=== PATIENT | female | born 1985 | race Hispanic/Latino ===

== ENCOUNTER 2019-11-20 09:34 | Emergency (ER) | payer SELFPAY ==
--- NOTE | 2019-11-20 10:43 | EDPHYS ---
Physician Documentation [facility] Name: Gloria Desir Age: 34 yrs Sex: Female : 1985 Arrival Date: 11/20/2019 Time: 09:39 Bed 12 Private MD: ED Physician Moses Holm HPI: 11/20 10:18 This 34 yrs old Female presents to ER via Ambulatory with complaints of Flu jmm Symptoms. 10:18 The patient or guardian reports cough. Onset: The symptoms/episode began/occurred jmm gradually, 3 day(s) ago. Modifying factors: The symptoms are alleviated by nothing. the symptoms are aggravated by nothing. Associated signs and symptoms: Pertinent positives: diarrhea, sore throat. This is a 34 year old female with no chronic medical conditions that presents ot the ED with complaints of cough, congestion, sore throat, fever, diarrhea beginning 3 days ago. patient states the diarrhea has now resolved. . Historical: - Allergies: 09:43 No Known Allergies; aa5 - Home Meds: 09:43 None [Active]; aa5 - PMHx: 09:43 None; aa5 - PSHx: 09:43 ; aa5 - Immunization history:: Flu vaccine is not up to date. - Social history:: Smoking status: Patient denies any tobacco usage or history of. ROS: 10:18 Constitutional: Positive for body aches, fever. jmm 10:18 ENT: Positive for sinus congestion, sore throat. 10:18 Respiratory: Positive for cough. 10:18 Abdomen/GI: Positive for diarrhea. 10:18 All other systems are negative. Exam: 10:18 Constitutional: This is a well developed, well nourished patient who is awake, alert, jmm and in no acute distress. Head/Face: atraumatic. Eyes: EOMI, no conjunctival erythema appreciated ENT: Moist Mucus Membranes Neck: Trachea midline, Supple Chest/axilla: Normal chest wall appearance and motion. Cardiovascular: Regular rate and rhythm. No edema appreciated Respiratory: Normal respirations, no respiratory distress appreciated Abdomen/GI: Non distended, soft Back: Normal ROM Skin: General appearance color normal MS/ Extremity: Moves all extremities, no obvious deformities appreciated, no edema noted to the lower extremities Neuro: Awake and alert, normal gait Psych: Behavior is normal, Mood is normal, Patient is cooperative and pleasant 10:18 Cardiovascular: Rate: normal, Rhythm: regular, Pulses: no pulse deficits are appreciated. 10:18 Respiratory: the patient does not display signs of respiratory distress, Respirations: normal, Breath sounds: are clear throughout. Vital Signs: 09:42 BP 117 / 77; Pulse 85; Resp 18 S; Temp 98.5(O); Pulse Ox 98% on R/A; Weight 79.38 kg aa5 (R); Height 5 ft. 2 in. (157.48 cm) (R); Pain 05/02; 09:42 Body Mass Index 32.01 (79.38 kg, 157.48 cm) aa5 MDM: 09:45 Patient medically screened. kenia 10:41 Data reviewed: vital signs, nurses notes. Counseling: I had a detailed discussion with shyanne the patient and/or guardian regarding: the historical points, exam findings, and any diagnostic results supporting the discharge/admit diagnosis, lab results, the need for outpatient follow up, to return to the emergency department if symptoms worsen or persist or if there are any questions or concerns that arise at home. ED course: Patient is alert and non toxic in appearance in the ED. No signs of resp distress. Most likely viral illness. Mother advised to increase fluid intake and follow up with pcp. Patient was otherwise given strict return precautions. Patient understood and agrees with the plan of care. . 11/20 09:57 Order name: Flu; Complete Time: 10:41 [facility] 11/20 09:57 Order name: Strep; Complete Time: 10:35 [facility] 11/20 10:32 Order name: Throat Culture EDMS Administered Medications: No medications were administered Disposition: 12:33 Co-signature as Attending Physician, Moses Holm MD I agree with the assessment and [facility] plan of care. Disposition: 11/20/19 10:42 Discharged to Home. Impression: Acute upper respiratory infection, unspecified. - Condition is Stable. - Discharge Instructions: Upper Respiratory Infection, Adult. - Prescriptions for Bromfed DM 2- 30-10 mg/5 mL Oral syrup - take 10 milliliter by ORAL route every 4 hours; 1 bottle. - Medication Reconciliation Form, Thank You Letter, Antibiotic Education, Prescription Opioid Use, Work release form form. - Follow up: Private Physician; When: 2 - 3 days; Reason: Recheck today's complaints, Continuance of care, Re-evaluation by your physician. Signatures: Dispatcher [employer] Moses Cooley MD MD cha Mickail, Joel, PA PA jmm Calderon, Audri, RN RN aa5 Corrections: (The following items were deleted from the chart) 10:56 10:42 11/20/2019 10:42 Discharged to Home. Impression: Acute upper respiratory aa5 infection, unspecified. Condition is Stable. Forms are Medication Reconciliation Form, Thank You Letter, Antibiotic Education, Prescription Opioid Use. Follow up: Private Physician; When: 2 - 3 days; Reason: Recheck today's complaints, Continuance of care, Re-evaluation by your physician. shyanne
--- NOTE | 2019-11-20 10:43 | ER ---
Nurse's Notes [facility] Name: Gloria Desir Age: 34 yrs Sex: Female : 1985 Arrival Date: 11/20/2019 Time: 09:39 Bed 12 Private MD: Diagnosis: Acute upper respiratory infection, unspecified Presentation: 11/20 09:42 Chief complaint: Patient states: cough and body aches that began Saturday night. Pt aa5 reports diarrhea the first 2 days but has now resolved. Pt denies vomiting. Pt states "my daughter just got over flu B". Coronavirus screen: The patient has NOT traveled to [place] in the past 14 days. The patient has NOT had contact with known and/or suspected case of Coronavirus. Ebola Screen: Patient negative for fever greater than or equal to 101.5 degrees Fahrenheit, and additional compatible Ebola Virus Disease symptoms. Initial Sepsis Screen: Does the patient meet any 2 criteria? No. Patient's initial sepsis screen is negative. Does the patient have a suspected source of infection? No. Patient's initial sepsis screen is negative. Risk Assessment: Do you want to hurt yourself or someone else? Patient reports no desire to harm self or others. 09:42 Method Of Arrival: Ambulatory aa5 09:42 Acuity: CHECO 4 aa5 Historical: - Allergies: 09:43 No Known Allergies; aa5 - Home Meds: 09:43 None [Active]; aa5 - PMHx: 09:43 None; aa5 - PSHx: 09:43 ; aa5 - Immunization history:: Flu vaccine is not up to date. - Social history:: Smoking status: Patient denies any tobacco usage or history of. Screenin:45 Abuse screen: Denies threats or abuse. Nutritional screening: No deficits noted. aa5 Tuberculosis screening: No symptoms or risk factors identified. Fall Risk None identified. Assessment: 09:45 General: Appears comfortable, Behavior is calm, cooperative. Pain: Complains of pain in aa5 whole body Pain does not radiate. Pain currently is 8 out of 10 on a pain scale. Quality of pain is described as aching, Pain began 2-3 days ago. Is continuous. Neuro: Level of Consciousness is awake, alert, obeys commands, Oriented to person, place, time, situation. Cardiovascular: Heart tones S1 S2 present Rhythm is regular. Respiratory: Reports cough Airway is patent Respiratory effort is even, unlabored, Respiratory pattern is regular, symmetrical, Breath sounds are clear bilaterally. GI: Abdomen is round non-distended, Bowel sounds present X 4 quads. Abd is soft and non tender X 4 quads. Patient currently denies diarrhea, nausea, vomiting. : No signs and/or symptoms were reported regarding the genitourinary system. EENT: No signs and/or symptoms were reported regarding the EENT system. Derm: Skin is pink, warm \\T\\ dry. Musculoskeletal: Range of motion: intact in all extremities. 10:54 Reassessment: Patient is alert, oriented x 3, equal unlabored respirations, skin aa5 warm/dry/pink. Vital Signs: 09:42 BP 117 / 77; Pulse 85; Resp 18 S; Temp 98.5(O); Pulse Ox 98% on R/A; Weight 79.38 kg aa5 (R); Height 5 ft. 2 in. (157.48 cm) (R); Pain 8/10; 09:42 Body Mass Index 32.01 (79.38 kg, 157.48 cm) aa5 ED Course: 09:39 Patient arrived in ED. mr 09:41 Talha Laura PA is PHCP. jm 09:41 Moses Holm MD is Attending Physician. jm 09:42 Arm band placed on. aa5 09:42 Patient has correct armband on for positive identification. aa5 09:43 Triage completed. aa5 09:44 Leticia Sood, DIANDRA is Primary Nurse. aa5 10:50 No provider procedures requiring assistance completed. Patient did not have IV access aa5 during this emergency room visit. Administered Medications: No medications were administered Outcome: 10:42 Discharge ordered by . jm 10:54 Discharged to home ambulatory. aa5 10:54 Condition: stable 10:54 Discharge instructions given to patient, Instructed on discharge instructions, follow up and referral plans. medication usage, Demonstrated understanding of instructions, follow-up care, medications, Prescriptions given X 1. 10:56 Patient left the ED. aa5 Signatures: Talha Laura PA PA jmm Spencer Rachel mr Leticia Sood, RN RN aa5
[2019-11-20 11:02] VITALS: BP 117/77; TEMP 98.5; O2SAT 98
== END 2019-11-20 10:56 | disposition home or self-care (01) ==
LOC: ER 09:34
DX: J06.9 Acute upper respiratory infection, unspecified (principal)
CPT/HCPCS: 87070; 87081; 87804; 99282

== ENCOUNTER 2020-01-10 20:21 | Emergency (ER) | payer SELFPAY ==
--- OUTSIDE RECORDS SUMMARY | 2020-01-10 20:23 | XMS REPORT ---
:1985 Author Organization [facility] t Address [address] [place] [address] Dr. Escalante [address] [place] [id number] Care Team Providers Name Role Phone Unavailable Unavailable Unavailable Problems This patient has no known problems. Allergies, Adverse Reactions, Alerts This patient has no known allergies or adverse reactions. Medications This patient has no known medications.
--- OUTSIDE RECORDS SUMMARY | 2020-01-10 20:23 | XMS REPORT | Summary of Care ---
:1985 Author Organization [facility] Address [address] [place] [address] Care Team Providers Name Role Phone Maximiliano Sargent [facility] Primary Care Provider Reason for Visit Reason Comments Well Woman Exam Encounter Details Date Type Department Care Team Description [facility] exam with routine gynecological exam (Primary Dx); Susie Viera [facility] H/O tubal ligation; [address] Depo-Provera contraceptive status; [place], [place] SADIE A Obesity (BMI 30.0-34.9); [id number] [place] [address] Screen for STD (sexually transmitted dis ease) [phone] Allergies No Known Allergiesdocumented as of this encounter (statuses as of 06/10/2019) Medications Medication Sig Dispensed Refills Start Date End Date Status azithromycin (ZITHROMAX) Pt to take 2 2 tablet 0 05/30/2017 Active 500 mg tablet pills po x 1 dose Hospital, Clinic, or Other Ordered Dose Route Frequency Start Date End Date Status Facility Administered Medication medroxyPROGESTERone 150 mg IM [id number] 06/10/2019 0 Active (DEPO-PROVERA) injection 150 mgIndications: Depo-Provera contraceptive status documented as of this encounter (statuses as of 06/10/2019) Active Problems Problem Noted Date Cervical high risk human papillomavirus (HPV) DNA test positive 04/18/2017 Overview: HPV+ on 03/2017 pap smear, pap smear resu lts are normal, repeat pap smear in 1 year. Chlamydia 04/17/2017 Well woman exam with routine gynecological exam 2016 Encounter for other contraceptive management 7 Depo-Provera contraceptive status 04/16/2017 Obesity (BMI 30.0-34.9) 04/16/2017 Chlamydia trachomatis infection of lower genitourinary sites 10/19/2016 H/O tubal ligation 07/05/2015 documented as of this encounter (statuses as of 06/10/2019) Resolved Problems Problem Noted Date Resolved Date General counselling and advice on contraception 07/05/2015 04/16/2017 Iron deficiency anemia due to chronic blood loss 07/05/2015 04/16/2017 Chlamydia trachomatis infection of lower genitourinary sites 04/15/2014 10/19/2016 Dichorionic diamniotic twin 12/18/2012 contractions 12/18/2012 04/13/2014 History of delivery, currently 12/18/2012 04/13/2014 Overview: History of delivery at 25 and 36 weeks care and examination immediately after delivery 1 10/13/2004 12/18/2012 documented as of this encounter (statuses as of 06/10/2019) Immunizations Name Administration Dates Next Due Td 09/23/2010 documented as of this encounter Social History Tobacco Use Types Packs/Day Years Used Date Never Smoker Smokeless Tobacco: Never Used Alcohol Use Drinks/Week oz/Week Comments No 0 Standard drinks or equivalent 0.0 Sex Assigned at Date Recorded Not on file Job Start Date Occupation Industry Not on file Not on file Not on file Travel History Travel Start Travel End No recent travel history available. documented as of this encounter Last Filed Vital Signs Vital Sign Reading Time Taken Comments Blood Pressure 105/72 06/10/2019 3:20 PM CDT Pulse 83 06/10/2019 3:20 PM CDT Temperature 36.4 C (97.6 F) 06/10/2019 3:20 PM CDT Respiratory Rate 16 06/10/2019 3:20 PM CDT Oxygen Saturation - - Inhaled Oxygen Concentration - - Weight 75.4 kg (166 lb 3 oz) 06/10/2019 3:20 PM CDT Height 157.5 cm (5' 2") 06/10/2019 3:20 PM CDT Body Mass Index 30.4 06/10/2019 3:20 PM CDT documented in this encounter Patient Instructions Patient InstructionsDanuta Infante LVN - 06/10/2019 3:00 PM CDT Clinical Breast Exam Many health organizations recommend a yearly clinical breast exam. This exam may be done by a lathe operator contact lens, family healthcare provider, nurse practitioner, nurse attendant self service store, or specially trained nurse. Yearly breast exams help tomake surethat breast conditions are found early. Your healthcare providers role A healthcare professional knows the tests and follow-up care needed if a problem is found. Your clinical exam is also a great time to ask questions about breast self-exams. You can find out if yourechecking your breasts in the best way. Or you may want to ask how , breast implants, or breast reduction surgery affect the way you should check your breasts. Diagnostic tests If a clinical exam reveals a breast change, you may have other tests to find out more. These tests may include: Mammography. A low-dose X-ray of your breast tissue. Ultrasound. An imaging test that uses sound waves to create images of your breast. Biopsy. A small amount of breast tissue is removed by needle or by a cut (incision). The tissue is then checked under a microscope. Guidelines for having clinical breast exams The [place] [employer] recommends that starting at age 29, you should have a clinical breast exam every 1 to 3 years. After age 40, have a clinical breast exam each year. If youre at higher risk for breast cancer, you may need exams more often. Risk factors for breast cancer may include: Being over 50 or postmenopausal Having a family history of breast cancer Having the BRCA1 or BRCA2 gene mutation or certain other gene mutations Having more menstrual periods due to starting menstruation early(before age 12) or having a late menopause (after age 55) Having no pregnancies Having a first after age 30 Being obese Having a history of radiation treatment to your chest area Exposure to VADIM during your mother's Not being active Drinking too much alcohol Having dense breast tissue Taking hormone therapy after menopause Other health organizations have different recommendations. Talk with your healthcare provider about what is best for you. Date Last Reviewed: 04/23/201719998841-6554 [employer]. [address] [place] [address], [place] [address]. All rights reserved. This information is not intended as a substitute for professional medical care. Always follow your healthcare professional's instructions. Breast Health: Breast Self-Awareness What is breast self-awareness? Breast self-awareness is knowing how your breasts normally look and feel. Your breasts change as yougo through different stages of your life. So its important to learn what is normal for your breasts. Breast self-awareness helps you notice any changes in your breasts right away. Report any changesto your healthcare provider. Why is breast self-awareness important? Many experts now say that women should focus on breast self-awareness instead of doing a breast self-examination (BSE). These experts include the [place] [employer], the U.S. Preventive Services Task Force, and the [place] [employer]. Some experts even advise notteaching women to do a BSE. Thats because research hasnt shown a clear benefit to doing BSEs. Breast self-awareness is different than a BSE. Breast self-awareness isnt about following a certain method and schedule. Its about knowing what's normal for your breasts. That way you can notice even small changes right away. If you see any changes, report them to your healthcare provider. Changes to look for Call your healthcare provider if you find any changes in your breasts that concern you. These changes may include: A lump Nipple discharge other than breastmilk, especially a bloody discharge Swelling A change in size or shape Skin irritation, such as redness, thickening, or dimpling of the skin Swollen lymph nodes in the armpit Nipple problems, such as pain or redness If you find a lump Contact your provider if you find lumpiness in one breast, feel something different in the tissue, or feel a definite lump. Sometimes lumpiness may be due to menstrual changes. But there may be reason for concern. Your provider may want to see you right away if you have: Nipple discharge that is bloody Skin changes on your breast, such as dimpling or puckering Its normal to be upset if you find a lump. But its important to contact your provider right away. Remember that most breast lumps are benign. This means they are not cancer. Date Last Reviewed: 04/23/201719992270-1502 [employer]. [address] [place] [address], [place] [address]. All rights reserved. This information is not intended as a substitute for professional medical care. Always follow your healthcare professional's instructions. Prevention Guidelines,Women Ages 18 to 39 Screening tests and vaccines are an important part of managing your health. A screening test is doneto find possible disorders or diseases in people who don't have any symptoms. The goal is to find a disease early so lifestyle changes can be made and you can be watched more closely to reduce the riskof disease, or to detect it early enough to treat it most effectively. Screening tests are not considered diagnostic, but are used to determine if more testing is needed. Health counseling is essential, too. Below are guidelines for these, for women ages 18 to 39. Talk with your healthcare provider tomake sure youre up-to-date on what you need. Screening Who needs it How often Alcohol misuse All women in this age group At routine exams Blood pressure All women in this age group Yearly checkup if your blood pressure is normal Normal blood pressure is less than 120/80 mm Hg If your blood pressure reading is higher than normal, follow the advice of your healthcare provider Breast cancer All women in this age group should talk with their healthcare providers about the needfor clinical breast exams (CBE)1 Clinical breast exam every 3 years1 Cervical cancer Women ages 21 and older Women between ages 21 and 29 should have a Pap test every 3 years; women between ages 30 and 65 are advised to have a Pap test plus an HPV test every 5 years Chlamydia Sexually active women ages 25 and younger, and women at increased risk for infection (suchas having multiple sex partners) Every year if you're at risk or have symptoms Depression All women in this age group At routine exams Type 2 diabetes, prediabetes All women with no symptoms who are overweight or obese and have 1 or more other risk factors for diabetes At least every 3 years. Also, testing for diabetes during after the 24th week. Type 2 diabetes, prediabetes All women diagnosed with gestational diabetes Lifelong testing every 3 years Type 2 diabetes All women with prediabetes Every year Gonorrhea Sexually active women at increased risk for infection At routine exams Hepatitis C Anyone at increased risk At routine exams HIV All women should be tested at least once for HIV between the ages of 13 and 64 At routine exams.Those with risk factors for HIV should be tested at least annually. Obesity All women in this age group At routine exams Syphilis Women at increased risk for infection should talk with their healthcare provider At routineexams Tuberculosis Women at increased risk for infection should talk with their healthcare provider Ask your healthcare provider Vision All women in this age group At least 1 complete exam in your 20s, and 2 in your 30s Vaccine2 Who needs it How often Chickenpox (varicella) All women in this age group who have no record of this infection or vaccine 2doses; the second dose should be given 4 to 8 weeks after the first dose Hepatitis A Women at increased risk for infection should talk with their healthcare provider 2 dosesgiven at least 6 months apart Hepatitis B Women at increased risk for infection should talk with their healthcare provider 3 dosesover 6 months; second dose should be given 1 month after the first dose; the third dose should be given at least 2 months after the second dose and at least 4 months after the first dose Haemophilus influenzaeType B (HIB) Women at increased risk for infection should talk with their healthcare provider 1 to 3 doses Human papillomavirus (HPV) All women in this age group up to age 26 3 doses; the second dose should be given 1 to 2 months after the first dose and the third dose given 6 months after the first dose Influenza (flu) All women in this age group Once a year Measles, mumps, rubella (MMR) All women in this age group who have no record of these infections or vaccines 1 or 2 doses Meningococcal Women at increased risk for infection should talk with their healthcare provider 1 or more doses Pneumococcal conjugate vaccine (PCV13)and pneumococcal polysaccharidevaccine(PPSV23) Women at increased risk for infection should talk with their healthcare provider PCV13: 1 dose ages 19 to 65 (protects against 13 types of pneumococcal bacteria) PPSV23: 1 to2 doses through age 64, or 1 dose at 65 or older (protects against 23 types of pneumococcal bacteria) Tetanus/diphtheria/pertussis (Td/Tdap) booster All women in this age group Td every 10 years, or a one-time dose of Tdap instead of a Td booster after age 18, then Td every 10 years Counseling Who needs it How often BRCA gene mutation testing for breast and ovarian cancer susceptibility Women with increased risk for having gene mutation When your risk is known Breast cancer and chemoprevention Women at high risk for breast cancer When your risk is known Diet and exercise Women who are overweight or obese When diagnosed, and then at routine exams Domestic violence Women at the age in which they are able to have children At routine exams Sexually transmitted infection prevention Women who are sexually active At routine exams Skin cancer Prevention of skin cancer in fair-skinned adults At routine exams Use of tobacco and the health effects it can cause All women in this age group Every visit 1 According to the ACS, women ages 20 to 39 years should have a clinical breast exam (CBE) as part of their routine health exam every 3 years. Breast self-exams are an option for women starting in their 20s.But the USPSTF does not recommend CBE. Date Last Reviewed: 06/23/201719996043-5192 [employer]. [address] [place] [address], [place] [address]. All rights reserved. This information is not intended as a substitute for professional medical care. Always follow your healthcare professional's instructions. Understanding STDs When it comes to sex, nothing is risk-free. Any sexual contact with the penis, vagina, anus, or mouth can spread a sexually transmitted disease (STD). The only sure way to prevent STDs is abstinence (not having sex). But there are ways to make sex safer. Use a latex condom each time you have sex. And choose your partner wisely. Use condoms for safer sex If you have sex, latex condoms provide the best protection against STDs. Latex condoms stop the exchange of body fluids that carry certain STDs. They also limit contact with affected skin. Be aware though, a condom doesnt cover all skin. So, affected skin that is not covered can still transfer disease. But youre safer with a condom than without one. Use a condom even if you use other control. While control methods like the pill or IUD help prevent , they do not protect against STDs. Choose the right condom Condoms made of latex prevent disease best. If youre allergic to latex, use polyurethane condoms instead. Male condoms fit over the penis. Female condoms line the vagina. Before buying a condom, read the label to be sure it prevents disease. Some novelty condoms dont. The right lubricant helps Buy lubricated condoms or use lubricant. This provides greater comfort and reduces the risk of condom breakage. Use only water-based lubricants. Dont use oil, lotion, or petroleum jelly. They can weaken the condom, causing breakage. Also, you may want to choose lubricants without nonoxynol-9. Its now known that this spermicide does not prevent disease and may cause irritation. Use condoms correctly For condoms to work, they must be used the right way. Keep these tips in mind: Use a new latex condom each time you have sex. Slip the condom on the penis before any contact ismade. When ready to withdraw, hold the rim of the condom as the penis pulls out. This prevents the condom from slipping off. Check the expiration date before using a condom. Dont store condoms in places that can get hot, such as a car or a wallet that is carried in a back pocket. Get to know your partner Safer sex is a process. It involves getting to know your partner and making informed choices. Ask each other how many partners you have had in the past, and how many you have now. Find out if either ofyou has an STD. If you decide to have sex, use a condom each time. Dont stop using condoms unlessyoure sure neither of you has other partners and youve both been tested to confirm you donthave STDs. Then stay free of disease by having sex only with each other (monogamy). Keep your cool Dont let alcohol or drugs cloud your judgment. They could lead you to have sex with someone you wouldnt have chosen if you were sober. Or, you might forget to use a condom. If you do plan to havesex, keep a latex condom with you. Dont wait until youre in the heat of passion to try to findone. Consider abstinence The only way to be sure you wont get an STD is to abstain from sex. Abstinence is a choice that many people make at some point in their lives. Maybe you want to wait until you are sure youre ready before you have sex. Maybe youd like a break from the responsibilities of sex for a while. Or maybe you just want to know your partner better before taking the next step. Abstinence is a choice youcan make now to protect your future. Date Last Reviewed: 08/23/201619991846-5300 [employer]. [address] [place] [address], [place] [address]. All rights reserved. This information is not intended as a substitute for professional medical care. Always follow your healthcare professional's instructions. Understanding HIV and AIDS If you know how HIV (human immunodeficiency virus) can get into your body and what happens once its there, youll be better prepared to protect yourself or others against this virus. A person withHIV can look and feel perfectly healthy. But that person can give HIV to others as soon as he or sheis infected with the virus. Note: Having unsafe or unprotected sex or sharing needles put you at risk for HIV. Talk with your healthcare provider about ways to protect yourself or a loved one from getting HIV. How HIV enters the body HIV is carried in semen, vaginal fluid, blood, and breast milk. During sex, HIV can enter the body through the fragile tissue that lines the vagina, penis, anus,and mouth. During drug use, tattooing, or body piercing, the virus can enter the bloodstream through a shared needle. A mother who has HIV can infect her child during childbirth and through . How HIV infection progresses After HIV enters the body, it attacks the immune system in stages. A person with HIV can infect others once the virus enters the bloodstream. HIV with no symptoms. A person with HIV may have no symptoms for years. A positive blood test for HIV antibodies 6 weeks to 6 months after HIV enters the body may be the only sign of infection. HIV with symptoms.Some people develop an illness similar to mononucleosis (or "mono") 2 to 4 weeksafter the virus enters the body. Symptoms may include swollen lymph glands, chills, fever, night sweats, weakness, weight loss, skin rashes, mouth ulcers, or sore throat. Symptoms may be mild at first and then slowly go away. In a very few individuals, symptoms may get progressively worse and last forlonger and longer periods. AIDS. AIDS is the last stage of HIV infection. Diseases and cancers begin to overcome the body. It is these diseases, not the virus itself, that cause . HIV may also attack the brain and nervous system, causing seizures and loss of memory and body movement. Date Last Reviewed: 07/24/201619995749-9024 [employer]. [address] [place] [address], [place] [address]. All rights reserved. This information is not intended as a substitute for professional medical care. Always follow your healthcare professional's instructions. Eating Heart-Healthy Foods Eating has a big impact on your heart health. In fact, eating healthier can improve several of your heart risks at once. For instance, it helps you manage weight, cholesterol, and blood pressure. Here are ideas to help you make heart- healthy changes without giving up allthe foods and flavors you love. Getting started Talk with your healthcare provider about eating plans, such as the DASH or Mediterranean diet. You may also be referred to a dietitian. Change a few things at a time. Give yourself time to get used to a few eating changes before adding more. Work to create a tasty, healthy eating plan that you can stick to for the rest of your life. Goals for healthy eating Below are some tips to improve your eating habits: Limit saturated fats and trans fats. Saturated fats raise your levels of cholesterol, so keep these fats to a minimum. They are found in foods such as fatty meats, whole milk, cheese, and palm and coconut oils. Avoid trans fats because they lower good cholesterol as well as raise bad cholesterol. Trans fats are most often found in processed foods. Reduce sodium (salt) intake. Eating too much salt may increase your blood pressure. Limit your sodium intake to 2,300 milligrams (mg) per day(the amount in 1 teaspoon of salt), or less if your healthcare provider recommends it. Dining out less often and eating fewer processed foods are two great ways to decrease the amount of salt you consume. Managing calories. A calorie is a unit of energy. Your body yung calories for fuel, but if you eat more calories than your body yung, the extras are stored as fat. Your healthcare provider can help you create a diet plan to manage your calories. This will likely include eating healthier foods as well as exercising regularly. To help you track your progress, keep a diary to record what you eat and how often you exercise. Choose the right foods Aim to make these foods oscar of your diet. If you have diabetes, you may have different recommendations than what is listed here: Fruits and vegetables provide plenty of nutrients without a lot of calories. At meals, fill half your plate with these foods. Split the other half of your plate between whole grains and lean protein. Whole grains are high in fiber and rich in vitamins and nutrients. Good choices include whole-wheat bread, pasta, and brown rice. Lean proteins give you nutrition with less fat. Good choices include fish, skinless chicken, and beans. Low-fat or nonfat dairy provides nutrients without a lot of fat. Try low-fat or nonfat milk, cheese, or yogurt. Healthy fats can be good for you in small amounts. These are unsaturated fats, such as olive oil,nuts, and fish. Try to have at least 2 servings per week of fatty fish, such as salmon, sardines, mackerel, rainbow trout, and albacore tuna. These contain omega-3 fatty acids, which are good for your heart. Flaxseed is another source of a heart-healthy fat. More on heart-healthy eating Read food labels Healthy eating starts at the grocery store. Be sure to pay attention to food labels on packaged foods. Look for products that are high in fiber and protein, and low in saturated fat, cholesterol, and sodium. Avoid products that contain trans fat. And pay close attention to serving size. For instance, if you plan to eat two servings, double all the numbers on the label. Prepare food right A leon part of healthy cooking is cutting down on added fat and salt. Look on the internet for lower-fat, lower-sodium recipes. Also, try these tips: Remove fat from meat and skin from poultry before cooking. Skim fat from the surface of soups and sauces. Broil, boil, bake, steam, grill, and microwave food without added fats. Choose ingredients that spice up your food without adding calories, fat, or sodium. Try these items: horseradish, hot sauce, lemon, mustard, nonfat salad dressings, and vinegar. For salt-free herbs and spices, try basil, cilantro, cinnamon, pepper, and linette. Date Last Reviewed: 06/23/201719998811-[address] [employer] [place] [address], [place] [address]. All rights reserved. This information is not intended as a substitute for professional medical care. Always follow your healthcare professional's instructions. Understanding USDA MyPlate The USDA (U.S. Department of Agriculture) has guidelines to help you make healthy food choices. These are called MyPlate. MyPlate shows the food groups that make up healthy meals using the image of a place setting. Before you eat, think about the healthiest choices for what to put onto your plate or into your cup or bowl. To learn more about building a healthy plate, visit www.choosemyplate.gov. The food groups Fruits. Any fruit or 100% fruit juice counts as part of the Fruit Group. Fruits may be fresh, canned, frozen, or dried, and may be whole, cut-up, or pureed. Make half your plate fruits and vegetables. Vegetables. Any vegetable or 100% vegetable juice counts as a member of the Vegetable Group. Vegetables may be fresh, frozen, canned, or dried. They can be served raw or cooked and may be whole, cut-up, or mashed. Make half your plate fruits and vegetables. Grains. All foods made from grains are part of the Grains Group. These include wheat, rice, oats,cornmeal, and barley such as bread, pasta, oatmeal, cereal, tortillas, and grits. Grains should be no more than a quarter of your plate. At least half of your grains should be whole grains. Protein. This group includes meat, poultry, seafood, beans and peas, eggs, processed soy products(like tofu), nuts (including nut butters), and seeds. Make protein choices no more than a quarter ofyour plate. Meat and poultry choices should be lean or low fat. Dairy. All fluid milk products and foods made from milk that contain calcium, like yogurt and cheese, are part of the Dairy Group. (Foods that have little calcium, such as cream, butter, and cream cheese, are not part of the group.) Most dairy choices should be low-fat or fat-free. Oils. These are fats that are liquid at room temperature. They include canola, corn, olive, soybean, and sunflower oil. Foods that are mainly oil include mayonnaise, certain salad dressings, and soft margarines. You should have only 5 to 7 teaspoons of oils a day. You probably already get this muchfrom the food you eat. Date Last Reviewed: 04/23/201719994306-5936 [employer] [place] [address]. All rights reserved. This information is not intended as a substitute for professional medical care. Always follow your healthcare professional's instructions. Medroxyprogesterone injection [Contraceptive] Brand Names: Depo-Provera, Depo-subQ Provera 104 What is this medicine? MEDROXYPROGESTERONE (me DROX ee proe SCOTT te radha) contraceptive injections prevent . They provide effective control for 3 months. Depo-subQ Provera 104 is also used for treating pain related to endometriosis. How should I use this medicine? Depo-Provera Contraceptive injection is given into a muscle. Depo-subQ Provera 104 injection is given under the skin. These injections are given by a health career and guidance counselor. You must not be before getting an injection. The injection is usually given during the first 5 days after the start of a menstrual period or 6 weeks after delivery of a baby. Talk to your program schedule clerk regarding the use of this medicine in children. Special care may be needed. These injections have been used in female children who have started having menstrual periods. What side effects may I notice from receiving this medicine? Side effects that you should report to your doctor or health career and guidance counselor as soon as possible: allergic reactions like skin rash, itching or hives, swelling of the face, lips, or tongue breast tenderness or discharge breathing problems changes in vision depression feeling faint or lightheaded, falls fever pain in the abdomen, chest, groin, or leg problems with balance, talking, walking unusually weak or tired yellowing of the eyes or skin Side effects that usually do not require medical attention (report to your doctor or health career and guidance counselor if they continue or are bothersome): acne fluid retention and swelling headache irregular periods, spotting, or absent periods temporary pain, itching, or skin reaction at site where injected weight gain What may interact with this medicine? Do not take this medicine with any of the following medications: bosentan This medicine may also interact with the following medications: aminoglutethimide antibiotics or medicines for infections, especially rifampin, rifabutin, rifapentine, and griseofulvin aprepitant barbiturate medicines such as phenobarbital or primidone bexarotene carbamazepine medicines for seizures like ethotoin, felbamate, oxcarbazepine, phenytoin, topiramate modafinil Catherine's wort What if I miss a dose? Try not to miss a dose. You must get an injection once every 3 months to maintain control. If you cannot keep an appointment, call and reschedule it. If you wait longer than 13 weeks between Depo-Provera contraceptive injections or longer than 14 weeks between Depo-subQ Provera 104 injections, you could get . Use another method for control if you miss your appointment. You may also need a test before receiving another injection. Where should I keep my medicine? This does not apply. The injection will be given to you by a health career and guidance counselor. What should I tell my health care provider before I take this medicine? They need to know if you have any of these conditions: frequently drink alcohol asthma blood vessel disease or a history of a blood clot in the lungs or legs bone disease such as osteoporosis breast cancer diabetes eating disorder (anorexia nervosa or bulimia) high blood pressure HIV infection or AIDS kidney disease liver disease mental depression migraine seizures (convulsions) stroke tobacco smoker vaginal bleeding an unusual or allergic reaction to medroxyprogesterone, other hormones, medicines, foods, dyes, or preservatives or trying to get breast-feeding What should I watch for while using this medicine? This drug does not protect you against HIV infection (AIDS) or other sexually transmitted diseases. Use of this product may cause you to lose calcium from your bones. Loss of calcium may cause weak bones (osteoporosis). Only use this product for more than 2 years if other forms of control are not right for you. The longer you use this product for control the more likely you will be at risk for weak bones. Ask your health career and guidance counselor how you can keep strong bones. You may have a change in bleeding pattern or irregular periods. Many females stop having periods while taking this drug. If you have received your injections on time, your chance of being is very low. If you think you may be , see your health career and guidance counselor as soon as possible. Tell your health career and guidance counselor if you want to get within the next year. The effect of this medicine may last a long time after you get your last injection. NOTE:This sheet is a summary. It may not cover all possible information. If you have questions aboutthis medicine, talk to your doctor, pharmacist, or health care provider. Copyright 2018 Elsevier documented in this encounter Progress Notes Beatrice Morgan RN - 06/10/2019 3:00 PM CDT34 year old female has been identified by . Verbal consent has been obtained by patient to have an injection of Depo Provera, as ordered by the provider. Date of last Depo Provera injection: 03/20/2019 Last WWE: 06/10/2019 Encounter Diagnosis: v25.49 The site was cleaned with an alcohol swab and given intramuscularly (IM) in the left deltoid. A band aid dressing was then applied to the injection site. The patient tolerated the procedure well . BEATRICE MORGAN RN 06/10/2019 4:08 PM Chana Sargent, SHOSHANA - 06/10/2019 3:00 PM CDT Chief complaint: Chief Complaint Patient presents with Well Woman Exam HPI: the patient is here today for WWE and contraceptive management. She reports she is doing well with no issues or concerns today. She reports she desires STI testing as she reports a new sexual partner within the past year. She reports tubal ligation for control and depo to help regulate her menses. Pt (denies) current or past physical, sexual or emotional abuse. Histories OB History Para Term AB Living 4 4 1 3 0 5 SAB TAB Ectopic Multiple Live Births 0 0 0 1 3 # Outcome Date GA Lbr Nabeel/2nd Weight Sex Delivery Anes PTL Lv 4A 02/20/13 34w0d M CS-LTranv 4B 02/20/13 34w0d F Y 3 Term 08/09/11 39w0d 6 lb 1.2 oz (2.755 kg) F Vag-Spont NONE N JED Comments: Took medication to prevent PTL 2 09/21/07 36w0d 6 lb 7.2 oz (2.925 kg) M Vag-Spont NONE Y JED Comments: PTL 1 08/13/05 24w0d 1 lb 10 oz (0.738 kg) F Vag-Spont NONE Y JED Comments: PTL Past Medical History: Diagnosis Date Abnormal uterine bleeding Anemia not sure of levels at this time Blood transfusion, without reported diagnosis 03/25/2014 History of delivery, currently Menstrual disorder Mental disorder Bipolar Pap smear abnormality of cervix 2018 PID (pelvic inflammatory disease) STD (sexually transmitted disease) CT+ Family History Problem Relation Age of Onset Asthma Sister Diabetes Maternal Aunt Diabetes Maternal Grandfather Heart Maternal Grandfather No Significant Medical Problems Maternal Grandmother Asthma Son Asthma Daughter Arthritis NoFHx defects NoFHx Breast Cancer NoFHx Colon Cancer NoFHx Ovarian Cancer NoFHx Uterine Cancer NoFHx Cancer NoFHx Genetic NoFHx Depression NoFHx High cholesterol NoFHx Hypertension NoFHx Mental retardation NoFHx Neurological NoFHx Osteoporosis NoFHx Psychiatry NoFHx Family Status Relation Name Status Sis Alive MAunt MGFa Mo Alive Fa Alive Bro Alive MUnc Alive PAunt Alive PUnc Alive MGMo Alive PGMo Alive PGFa Son (Not Specified) Amanda (Not Specified) NoFHx (Not Specified) Past Surgical History: Procedure Laterality Date SECTION TUBAL LIGATION Social History Socioeconomic History Marital status: Single Spouse name: Not on file Number of children: 5 Years of education: 12 Highest education level: Not on file Occupational History Occupation: Unemployed Social Needs Financial resource strain: Not on file Food insecurity: Worry: Not on file Inability: Not on file Transportation needs: Medical: Not on file Non-medical: Not on file Tobacco Use Smoking status: Never Smoker Smokeless tobacco: Never Used Substance and Sexual Activity Alcohol use: No Alcohol/week: 0.0 oz Drug use: Yes Sexual activity: Yes Partners: Male control/protection: Injection, Surgical, Condom Comment: last sexual 05/20/2019 Lifestyle Physical activity: Days per week: Not on file Minutes per session: Not on file Stress: Not on file Relationships Social connections: Talks on phone: Not on file Gets together: Not on file Attends tenriism service: Not on file Active member of club or organization: Not on file Attends meetings of clubs or organizations: Not on file Relationship status: Not on file Intimate partner violence: Fear of current or ex partner: Not on file Emotionally abused: Not on file Physically abused: Not on file Forced sexual activity: Not on file Other Topics Concern Not on file Social History Narrative Orthodoxy preference none. Patient lives with children. Social History Substance and Sexual Activity Sexual Activity Yes Partners: Male control/protection: Injection, Surgical, Condom Comment: last sexual 05/20/2019 Labs Labs are pending. Radiology No new radiology. Allergies Gloria has No Known Allergies. Medications Gloria has a current medication list which includes the following prescription(s): azithromycin, and the following Facility-Administered Medications: medroxyprogesterone. Review of Systems Constitutional: Negative. HENT: Negative. Eyes: Negative. Respiratory: Negative. Breasts: Negative. Cardiovascular: Negative. Gastrointestinal: Negative. Genitourinary: Negative. Musculoskeletal: Negative. Skin: Negative. Neurological: Negative. Psychiatric/Behavioral: Negative. Endocrine: Endocrine negative BP 105/72 | Pulse 83 | Temp 36.4 C (97.6 F) | Resp 16 | Ht 5' 2" (1.575 m) | Wt 166 lb 3 oz(75.4 kg) | LMP 06/08/2019 (Approximate) | BMI 30.40 kg/m Pregravid BMI: Could not be calculated Physical Exam Vitals reviewed. Constitutional: She is oriented to person, place, and time. She appears well- developed. Her body habitus is normal. Neck: No tenderness and no mass. No thyroid nodules and no thyromegaly palpated. No neck adenopathy. Cardiovascular: Regular rate and rhythm. No gallop, no friction rub and no murmur auscultated. No peripheral edema present. Pulmonary/Chest: Breath sounds clear to auscultation. Normal inspiratory effort. Abdominal: Abdomen is soft. No mass palpated. No tenderness present. There is no hepatosplenomegaly,splenomegaly or hepatomegaly. There is no rigidity. No hernia palpated or inspected. Neuro/Psychiatric: She has a normal mood and affect. She is oriented to person, place, and time. Skin: No lesion, no rash and no ulceration present. Lymphadenopathy: No neck adenopathy present. No axillary adenopathy present. No inguinal adenopathy present. Genitourinary Comments: Anahi CARRANZA present during exam Breast: Right breast exhibits no mass, no nipple discharge and no tenderness. Left breast exhibits no mass, no nipple discharge and no tenderness. Breasts are symmetrical. Normal left breast and normalright breast Rectal: Rectal exam with normal anal tone. No mass, no external hemorrhoid and no internal hemorrhoid palpated or inspected. External genitalia: Normal external genitalia appropriate for age. Normal hair distribution. No labial lesion. Urethral meatus: Normal urethral meatus size, location and no lesion. No prolapse present. Normal urethral meatus Urethra: Normal urethra. No urethral tenderness, no mass and no urethral scarring palpated. Bladder: Bladder has no fullness, no mass palpated and no tenderness. Normal bladder Vagina:Normal vagina. No lesion inspected. Normal estrogen effect. Normal support. No abnormal vaginal discharge found. Cervix: Normal cervix. No lesion. No tenderness and no discharge present. Uterus: Uterus is normal size, normal contour, normal position and non-tender. Normal uterus Adnexa: Right adnexa without tenderness, ovary enlargement or mass. Left adnexa without tenderness, ovary enlargement or mass. Normal left adnexa and normal right adnexa Anus/perineum: Normal perineum and normal anus. Assessment/Plan Return to clinic in 12 weeks. 08/2019 for depo Return in 1 year for WWE or sooner as needed Rubella/VZV: immune/pendign BMI 30 Td: 2010 Pap Smear: today Gardasil:na Mammogram:na Guaiac:na Colonoscopy:na Well woman exam with routine gynecological exam (primary encounter diagnosis) Comment:routine Plan: PAP Smear-Liquid Based, HIGH RISK HPV-THIN PREP H/O tubal ligation Depo-Provera contraceptive status Comment: as ordered Plan: medroxyPROGESTERone (DEPO-PROVERA) injection 150 mg Obesity (BMI 30.0-34.9) Comment: see bmi Plan: limit weight gain and sensible diet. Screen for STD (sexually transmitted disease) Comment: as ordered Plan: GC & CHLAMYDIA AMPLIFIED ASSAY, HIV 1/2 AG-AB WITH REFLEX This visit did not involve counseling and coordination that comprised more than 50% of the visit time. IRLANDA Metzger 06/10/2019 4:01 PM Danuta Infante LVN - 06/10/2019 3:00 PM CDT34 year old presented to the clinic for WWE. 1) Previous BCM:BTL, Depo 2) Desired BCM:BTL, Depo 3) LMP:06/08/2019 4) Last Benton:05/20/2019 5) Last Pap:04/16/2018 Results:abnormal 6) Tdap in last 10 years?09/23/2010 HPV? no 7) C/O none 8) Patient denies history of physical, emotional, or sexual abuse. Patient states she currently feels safe at home. documented in this encounter Plan of Treatment Date Type Specialty Care Team Description 09/04/2019 Nurse [facility] Name Type Priority Associated Diagnoses Date/Ti me PAP Smear-Liquid Based LAB Routine Well woman exam wi th 06/10/2019 3:58 PM routine gynecological exam C DT HIGH RISK HPV-THIN PREP LAB Routine Well woman exam w ith 06/10/2019 3:58 PM routine gynecological exam C DT GC & CHLAMYDIA LAB Routine Screen for STD (sexually 0 06/10/2019 4:01 PM AMPLIFIED ASSAY transmitted disease) CDT HIV 1/2 AG-AB WITH LAB Routine Screen for STD (sexual ly 06/10/2019 4:01 PM REFLEX transmitted disease) CDT Health Maintenance Due Date Last Done Comments VARICELLA VACCINES (1 of 2 1999 - 13+ 2-dose series) DTaP,Tdap,and Td Vaccines 09/24/2010 09/23/2010 (1 - Tdap) INFLUENZA VACCINE (#1) 2019 PAP SMEAR 04/16/2021 04/16/2018, 04/16/2017, 04/13/2014, Additional history exists PNEUMOCOCCAL 0-64 YEARS Aged Out No longe r eligible COMBINED SERIES based on patient 's age to complete this topic documented as of this encounter Results Not on filedocumented in this encounter Visit Diagnoses Diagnosis Well woman exam with routine gynecologic al exam - Primary Routine gynecological examination H/O tubal ligation Tubal ligation status Depo-Provera contraceptive status Surveillance of other previously prescri bed contraceptive method Obesity (BMI 30.0-34.9) Obesity, unspecified Screen for STD (sexually transmitted dis ease) Screening examination for venereal disea se documented in this encounter Administered Medications Medication Order MAR Action Action Date Dose Rate Site medroxyPROGESTERone Given 06/10/2019 4:10 150 mg Left Deltoid-IM (DEPO-PROVERA) injection 150 PM CDT mg 150 mg, Intramuscular, [id number], 4 doses, First dose on Sat06/10/19 at 1600, Last dose on Sat02/17/20 at 1600, Routine documented in this encounter Insurance Payer Benefit Plan Subscriber ID Effective Phone Address Typ e / Group Dates [facility] xxxxxxxxx 2016-Pres [phone] Medicaid WOMEN ent [id number] [place] [address] documented as of this encounter Advance Directives Name Relationship Healthcare Agent Communication Relationship Che Cummins Mother Primary healthcare agent Lizeth Desir Sibling [facility] healthcare [phone] agent (Mobile)
--- OUTSIDE RECORDS SUMMARY | 2020-01-10 20:24 | XMS REPORT | Summary of Care ---
:1985 Author Organization [facility] Address [address] [place] [address] Care Team Providers Name Role Phone Maximiliano Sargent [facility] Primary Care Provider Reason for Visit Reason Comments NURSE VISIT LAB WORK Encounter Details Date Type Department Care Team Description 10/30/2019 Nurse Visit [facility]- Alec Sargent, [facility] [address] [place] [address] Screening examination for STD (sexually transmitted disease) (Primary Dx); [place] Visit, [facility] Nurse Chlamydia trachomatis infection of lower genitourinary sites [address] [place] [address] Allergies No Known Allergiesdocumented as of this encounter (statuses as of 10/30/2019) Medications Medication Sig Dispensed Refills Start Date End Date Status azithromycin (ZITHROMAX) Pt to take 2 2 tablet 0 05/30/2017 Active 500 mg tablet pills po x 1 dose Hospital, Clinic, or Other Ordered Dose Route Frequency Start Date End Date Status Facility Administered Medication medroxyPROGESTERone 150 mg IM [id number] 06/10/2019 0 Active (DEPO-PROVERA) injection 150 mgIndications: Depo-Provera contraceptive status documented as of this encounter (statuses as of 10/30/2019) Active Problems Problem Noted Date Cervical high [...] as of this encounter (statuses as of 10/30/2019) Resolved Problems Problem Noted Date Resolved Date [...] as of this encounter (statuses as of 10/30/2019) Immunizations Name Administration Dates Next Due Td [...] of this encounter Last Filed Vital Signs Not on filedocumented in this encounter Plan of Treatment Date Type Specialty Care Team Description 11/27/2019 Nurse Visit [facility]ell[facility] Visit, [facility] Nurse Name Type Priority Associated Diagnoses Date/Ti me GC & CHLAMYDIA LAB Routine Chlamydia trachomatis 03/2020 1:53 PM AMPLIFIED ASSAY 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 Name Type Priority Associated Diagnoses Order S chedule HIV 1/2 AG-AB WITH LAB Routine Screening examination for Expected: 10/30/2019, REFLEX STD (sexually transmitted Ex carolin: 10/30/2020 disease) Health Maintenance Due Date Last Done Comments DTaP,Tdap,and Td Vaccines 09/04/2020 09/23/2010 Postpo [place] from (1 - Tdap[place] INFLUENZA VACCINE (#1) 2020 Postponed from 05/24/2019 (Refu sed) VARICELLA VACCINES (1 of 2 09/04/2020 Postp oned from - 2-dose childhood series) 04/01 (Insurance / Financial) PAP SMEAR 06/10/2022 06/10/2019, 04/16/2018, 04/16/2017, Additional history exists PNEUMOCOCCAL 0-64 YEARS Aged Out No longe r eligible COMBINED SERIES based on patient 's age to complete this topic documented as of this encounter Results Not on filedocumented in this encounter Visit Diagnoses Diagnosis Screening examination for STD (sexually transmitted disease) - Primary Screening examination for venereal disea se Chlamydia trachomatis infection of lower genitourinary sites documented in this encounter Insurance Payer Benefit Plan Subscriber ID Effective Phone Address Typ e / Group Dates [facility] xxxxxxxxx 2016-Pres [phone] Medicaid WOMEN ent [id number] [place] [address] documented as of this encounter Advance Directives Name Relationship Healthcare Agent Communication Relationship Che Cummins Mother Primary healthcare agent Lizeth Desir Sibling First alternate healthcare agent (Mobile)
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
--- OUTSIDE RECORDS SUMMARY | 2020-01-10 20:24 | XMS REPORT | Summary of Care ---
:1985 Author Organization [facility] - Health Address [address] [place] [address] Care Team Providers Name Role Phone Maximiliano Sargent [facility] Primary Care Provider Encounter Details Date Type Department Care Team Description 10/30/2019 Orders Only [facility] Doctor Unassigned, No [address] [facility] [place] [address] [address] [place] [address] Allergies No Known Allergiesdocumented as of this encounter (statuses as of 10/30/2019) Medications Medication Sig Dispensed Refills Start Date End Date Status azithromycin (ZITHROMAX) Pt to take 2 2 tablet 0 05/30/2017 Active 500 mg tablet pills po x 1 dose Hospital, Clinic, or Other Ordered Dose Route Frequency Start Date End Date Status Facility Administered Medication medroxyPROGESTERone 150 mg IM [id number] 06/10/2019 0 Active (DEPO-PROVERA) injection 150 mgIndications: [...] Description 11/27/2019 Nurse Visit OB Satellites Visit, [facility] Nurse Health Maintenance Due Date Last Done Comments [...] this topic documented as of this encounter Procedures Procedure Name Priority Date/Time Associated Diagnosis Comme nts ASSIGNMENT OF BENEFITS Routine 10/30/2019 1:11 PM OUTBOUND SALES PROFESSIONAL documented in this encounter Results Not on filedocumented in this encounter Insurance Payer Benefit Plan Subscriber ID Effective Phone Address Typ e / Group Dates [facility] [place] [id number] xxxxxxxxx 2016-Pres [phone] Medicaid WOMEN ent [address] [place] [address] documented as of this encounter Advance Directives Name Relationship Healthcare Agent Communication Relationship Che Cummins Mother Primary healthcare agent Lizeth Desir Sibling First [facility] [phone] agent (Mobile)
[2020-01-10] MEDS ORDERED: ONDANSETRON 4 MG (ODT) TAB ONE (21:03)
[2020-01-10] MEDS ORDERED: MORPHINE 4 MG/ML SYR ONE (21:03)
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
[2020-01-10 22:35] VITALS: BP 110/89; TEMP 97.5; O2SAT 100
== END 2020-01-10 22:08 | disposition home or self-care (01) ==
LOC: ER 20:21
DX: S02.92XA Unspecified fracture of facial bones, initial encounter for closed fracture (principal); Y08.89XA Assault by other specified means, initial encounter; Y93.9 Activity, unspecified; Y92.9 Unspecified place or not applicable
CPT/HCPCS: 70450; 70486; 72125; 76377; 96372; 99284